=== PATIENT | female | born 1940 | race Caucasian/White ===

== ENCOUNTER → 2016-10-10 | Outpatient (CLI) | payer BC ==
[~2016-10-10] MED LIST: CALC600T9 PO; MULT-506 PO; OMEG10007 PO; REDPOW2 PO; VTMD1000 PO
--- NOTE | 2016-10-10 15:00 | MAMMOGRAPHY REPORT ---
BILATERAL DIGITAL SCREENING MAMMOGRAM WITH CAD: 10/10/2016 CLINICAL HISTORY: Routine screening. Patient has no complaints. TECHNIQUE: Bilateral CC and MLO views were obtained. Current study was also evaluated with a Compute r Aided Detection (CAD) system. COMPARISON: Comparison is made to exams dated: 10/07/2015 mammogram, 10/03/2013 mammogram, 09/06/2012 mammogram, 09/05/2011 mammogram, 09/02/2010 mammogram, and 07/17/2009 mammogram - [facility]. BREAST COMPOSITION: There are scattered areas of fibroglandular density in both breasts. FINDINGS: There are a few punctate benign-appearing microcalcifications. No new suspicious mass, a rchitectural distortion or cluster of microcalcifications is seen. IMPRESSION: ACR BI-RADS CATEGORY 1: NEGATIVE There is no mammographic evidence of malignancy. A 1 year screening mammogram is recommended. The p atient will receive written notification of the results. Approximately 10% of breast cancers are not detected with mammography. A negative mammographic repor t should not delay biopsy if a clinically suggestive mass is present. Antonia Soares M.D. ay/:10/10/2016 14:18:06 Tax Services Intern: Nery HATFIELD(R)(M), [facility] letter sent: Normal 1/2 BI-RADS Code: ACR BI-RADS Category 1: Negative
== END | disposition home or self-care (01) ==
LOC: C.MAMM 13:44
PROVIDERS: ATTEND Obstetrics & Gynecology
DX: Z12.31 Encounter for screening mammogram for malignant neoplasm of breast (principal)

== ENCOUNTER → 2017-10-05 | Outpatient (CLI) | payer BC | END | disposition home or self-care (01) | LOC: C.RAD 16:39 | DX: M54.12 Radiculopathy, cervical region (principal) ==

== ENCOUNTER → 2017-10-11 | Outpatient (CLI) | payer BC ==
--- NOTE | 2017-10-12 13:43 | MAMMOGRAPHY REPORT ---
BILATERAL DIGITAL SCREENING MAMMOGRAM TOMOSYNTHESIS WITH CAD: 10/11/2017 CLINICAL HISTORY: Routine screening. Patient has no complaints. TECHNIQUE: Breast tomosynthesis in addition to standard 2D mammography was performed. Current study was also evaluated with a Computer Aided Detection (CAD) system. COMPARISON: Comparison is made to exams dated: 10/10/2016 mammogram, 10/07/2015 mammogram, 10/06/2014 m ammogram, 10/03/2013 mammogram, 09/06/2012 mammogram, and 09/05/2011 mammogram - [facility]. BREAST COMPOSITION: There are scattered areas of fibroglandular density in both breasts. FINDINGS: No suspicious masses, calcifications, or areas of architectural distortion are noted in ei ther breast. There has been no significant interval change compared to prior exams. IMPRESSION: ACR BI-RADS CATEGORY 1: NEGATIVE There is no mammographic evidence of malignancy. A 1 year screening mammogram is recommended. The pa tient will receive written notification of the results. Approximately 10% of breast cancers are not detected with mammography. A negative mammographic report should not delay biopsy if a clinically suggestive mass is present. Liya Rosas M.D. /:10/11/2017 15:58:48 Copyist: Nery HATFIELD(Rosemary)(M), [facility] letter sent: Normal 1/2 BI-RADS Code: ACR BI-RADS Category 1: Negative
== END | disposition home or self-care (01) ==
LOC: C.MAMM 14:09
PROVIDERS: ATTEND Obstetrics & Gynecology
DX: Z12.31 Encounter for screening mammogram for malignant neoplasm of breast (principal)

== ENCOUNTER → 2017-10-12 | Outpatient (CLI) | payer BC | END | disposition home or self-care (01) | LOC: C.MAMM 13:45 | PROVIDERS: ATTEND Nurse Practitioner Family | DX: M85.89 Other specified disorders of bone density and structure, multiple sites (principal) ==

== ENCOUNTER → 2017-10-18 | Outpatient (CLI) | payer BC ==
--- NOTE | 2017-10-18 13:57 | DIAGNOSTIC IMAGING REPORT ---
MRI OF THE CERVICAL SPINE WITHOUT IV CONTRAST CLINICAL HISTORY: Degenerative joint disease. Neck pain. Bilateral arm pain and numbness. COMPARISON STUDY: Radiographs of the cervical spine dated 10/05/2017. Chest CT dated 01/08/2007. TECHNIQUE: MRI of the cervical spine is performed utilizing various T1 and T2-weighted sequences in the axial and sagittal planes. IV contrast was not administered for this examination. FINDINGS: Cervical spine: Vertebral body height is maintained throughout the cervical spine. There is a mild superior endplate compression deformity partially imaged in the body of T4. Minimal anterolisthesis is seen at C5-C6. Alignment is otherwise maintained. There is mild hyperlordosis. The atlantodental articulation appears intact. The spinous processes are preserved. Sclerotic change is identified in the spinous process of C7. This likely represents a bone island, and was also seen by CT in 2006. Mild degenerative endplate edema is seen at C6-C7. Intervertebral discs: Degenerative disc desiccation is seen throughout the cervical spine. Moderate loss of height is noted at C6-C7. Only minimal loss of height is seen at the remaining cervical levels. Spinal cord: The cervical spinal cord is normal in morphology and signal intensity. C2-C3: Unremarkable. C3-C4: Unremarkable. C4-C5: A small posterior disc osteophyte complex eccentric to the left minimally effaces the ventral subarachnoid space. Uncovertebral and facet arthropathy cause minimal left greater than right neural foraminal stenosis. C5-C6: Facet arthropathy is of no consequence. The central canal and neural foramina are patent. C6-C7: A posterior disc osteophyte complex effaces the ventral subarachnoid space. Predominantly uncovertebral arthropathy causes mild bilateral neural foraminal stenosis. C7-T1: Unremarkable. Soft tissues: The prevertebral and paraspinous soft tissues are within normal limits. Brain parenchyma: Partially visualized brain parenchyma at the skull base is normal in appearance. IMPRESSION: 1. There is no disc herniation or high-grade central canal stenosis seen involving the cervical spine. 2. Mild multilevel cervical spondylosis as above. See discussion for detailed level by level analysis. 3. Degenerative disc disease with associated endplate edema is noted at C6-C7. 4. The cervical spinal cord is normal in morphology and signal intensity. Dictated: 10/18/2017 1:37 PM Transcribed: 10/18/2017 1:57 PM [email or web address] Electronically signed by: Duc Cao M.D. 10/18/2017 2:00 PM Dictated Date/Time: 10/18/2017 1:37 PM
== END | disposition home or self-care (01) ==
LOC: C.MRIBC 12:36
PROVIDERS: ATTEND Family Medicine Sports Medicine
DX: M54.12 Radiculopathy, cervical region (principal); M47.812 Spondylosis without myelopathy or radiculopathy, cervical region; M50.323 Other cervical disc degeneration at C6-C7 level